=== PATIENT | male | born 1950 | race Caucasian/White ===

== ENCOUNTER 2019-03-26 00:47 | Emergency (ER) | payer MEDICARE, BC ==
[~2019-03-26] VITALS: Ht 180.3 cm; Wt 124.7 kg
--- NOTE | 2019-03-26 01:00 | NUR ---
BIBWIFE C/O DIZZINESS X1 WEEK, PROGRESSIVELY GETTING WORSE. PT ALSO C/O NAUSEA. PT AAOX4. PT APPEARS UNCOMFORTABLY. RESPRIATIONS EVEN AND UNLABORED. SKIN INTACT. NO ACUTE DISTRESS NOTED AT THIS TIME. WILL CONTINUE TO MONITOR.
[2019-03-26] MEDS ORDERED: ONDANSETRON HCL/PF 4 MG/2 ML VIAL ONE (01:21)
[2019-03-26] MEDS ORDERED: ONDANSETRON HCL/PF - ER 4 MG/2 ML VIAL IV ONE (01:30)
[2019-03-26] MEDS ORDERED: MECLIZINE HCL 25 MG TABLET PO ONE (01:30)
[2019-03-26] MEDS ORDERED: ONDANSETRON 4 MG TAB.RAPDIS SL ONE (01:30)
[2019-03-26] MEDS ORDERED: IV NS 0.9% 1,000 ML BAG IV ONE (01:30)
--- NOTE | 2019-03-26 01:35 | NUR ---
IV INITIATED RAC 18G. LABS DRAWN FROM SITE. MEDICAL MASSAGE THERAPIST AT BEDSIDE FOR COLLECTION. IV INTACT AND PATENT, PLACED ON SALINE LOCK
[2019-03-26 01:40] LABS: BASOPHILS % (AUTO) 0.4 % (0.0-2.0); EOSINOPHILS % (AUTO) 1.9 % (0.0-6.0); HEMATOCRIT 33 % (39-51); LYMPHOCYTES # (AUTO) 0.3 /CMM (0.8-4.8); LYMPHOCYTES % (AUTO) 4.7 % (20.0-44.0); MEAN CORPUSCULAR HGB CONC 33 g/dl (31.0-36.0); MEAN CORPUSCULAR VOLUME 92 fL (80-96); MONOCYTES # (AUTO) 0.7 /CMM (0.1-1.30); MONOCYTES % (AUTO) 9.4 % (2.0-12.0); NEUTROPHILS # (AUTO) 5.8 /CMM (1.8-8.9); NEUTROPHILS % (AUTO) 83.6 % (43.0-81.0); PLATELET COUNT (AUTO) 119 /CMM (150-450); RED BLOOD CELL COUNT(AUTO) 3.59 MIL/uL (4.5-6.0)
[2019-03-26 01:48] LABS: CALCIUM, SERUM 9.3 mg/dL (8.5-10.1); CREATININE 4.9 mg/dL (0.6-1.3); POTASSIUM 3.9 mmol/L (3.5-5.1)
[2019-03-26] MEDS ORDERED: MECLIZINE HCL 25 MG TABLET ONE (02:17)
--- NOTE | 2019-03-26 02:55 | NUR ---
Patient discharged to home in stable condition. Written and verbal after care instructions given. Patient verbalizes understanding of instruction.IV removed. Catheter intact and site benign. Pressure and 4x4 applied to site. No bleeding noted.Pt ambulatory with a steady gait
[2019-03-26 02:56] VITALS: BP 164/71
== END 2019-03-26 02:56 | disposition home or self-care (01) ==
LOC: ER 00:57
DX: R42 Dizziness and giddiness (principal); E86.0 Dehydration; I12.0 Hypertensive chronic kidney disease with stage 5 chronic kidney disease or end stage renal disease; N18.6 End stage renal disease; J45.909 Unspecified asthma, uncomplicated; Z99.2 Dependence on renal dialysis; Z88.7 Allergy status to serum and vaccine
CPT/HCPCS: 36415; 80048; 85025; 93005 ×2; 96361; 96374; 99284; J2405; J7030; J8597

== ENCOUNTER 2020-10-08 21:44 | Emergency (ER) | payer MEDICARE, BC ==
[~2020-10-08] VITALS: Ht 180.3 cm; Wt 111.1 kg
--- NOTE | 2020-10-08 22:05 | NUR ---
PATIENT BIBS FOR C/O LEFT LOWER BACK PAIN RADIATING TO THE LLE. HX OF SCIATICA AND LOWER BACK PAIN (STENOSIS). PATIENT IS A/O X 4, RR EVEN AND UNLABORED, NO SOB NOTED. PATIENT CONNECTED TO MONITOR.
[2020-10-08] MEDS ORDERED: MORPHINE SULFATE INJ 2 MG/ML DISP.SYRIN IM ONE (22:30)
[2020-10-08] MEDS ORDERED: ONDANSETRON 4 MG TAB.RAPDIS SL ONE (22:30)
[2020-10-08] MEDS ORDERED: DEXAMETHASONE SOD PHOSPHATE 4 MG/ML VIAL IM ONE (22:30)
[2020-10-08] MEDS ORDERED: ONDANSETRON 4 MG TAB.RAPDIS ONE (22:33)
[2020-10-08] MEDS ORDERED: MORPHINE SULFATE INJ 4 MG/ML DISP.SYRIN ONE (22:33)
[2020-10-08] MEDS ORDERED: DEXAMETHASONE SOD PHOSPHATE 10 MG/ML VIAL ONE (22:33)
[2020-10-08 23:16] VITALS: BP 138/62
--- NOTE | 2020-10-08 23:17 | NUR ---
Patient discharged to home in stable condition. Written and verbal after care instructions given. Patient verbalizes understanding of instruction.
== END 2020-10-08 23:17 | disposition home or self-care (01) ==
LOC: ER 21:46
DX: M54.42 Lumbago with sciatica, left side (principal); I10 Essential (primary) hypertension; E78.5 Hyperlipidemia, unspecified; J45.909 Unspecified asthma, uncomplicated; M10.9 Gout, unspecified; Z91.048 Other nonmedicinal substance allergy status
CPT/HCPCS: 96372 ×2; 99284; J1100; J2270; Q0162

== ENCOUNTER 2021-04-23 06:21 | Emergency (ER) | payer MEDICARE, BC ==
[~2021-04-23] VITALS: Ht 182.9 cm; Wt 117.9 kg
[2021-04-23] MEDS ORDERED: MORPHINE SULFATE INJ 2 MG/ML DISP.SYRIN IM ONE ×2 (08:00→10:30)
--- NOTE | 2021-04-23 08:00 | NUR ---
BIB FOR C/O LOWER BACK PAIN 4/ S/P GLF. PT HAD ANOTHER FALL EPISDOE W/ POSSIBLE BROKEN L HAND/ FINGERS PAIN RATES 4. THE PATIENT IS ALERT AND ORIENTED X4. RESPIRATION REGULAR AND UNLABORED. WILL CONTINUE T MONITOR THE PATIENT.
[2021-04-23] MEDS ORDERED: MORPHINE SULFATE INJ 4 MG/ML DISP.SYRIN ONE ×2 (08:31→10:31)
--- NOTE | 2021-04-23 08:36 | NUR ---
RETURNED FROM RADIOLOGY FOR IMAGING STUDIES. C/O 01/13 PAIN. MEDICATED ORDERED. SEE EMAR.
[2021-04-23] MEDS ORDERED: HYDR-4209 PO (10:25)
--- NOTE | 2021-04-23 10:40 | NUR ---
Patient discharged to home in stable condition. Written and verbal after care instructions given. Patient verbalizes understanding of instruction.
[2021-04-23 11:03] VITALS: BP 126/62
== END 2021-04-23 11:03 | disposition home or self-care (01) ==
LOC: ER 06:24
DX: M25.532 Pain in left wrist (principal); M79.642 Pain in left hand; R22.32 Localized swelling, mass and lump, left upper limb; R51.9 Headache, unspecified; E78.5 Hyperlipidemia, unspecified; I25.10 Atherosclerotic heart disease of native coronary artery without angina pectoris; J45.909 Unspecified asthma, uncomplicated; M10.9 Gout, unspecified; I13.2 Hypertensive heart and chronic kidney disease with heart failure and with stage 5 chronic kidney disease, or end stage renal disease; E11.22 Type 2 diabetes mellitus with diabetic chronic kidney disease; N18.6 End stage renal disease; I50.9 Heart failure, unspecified; Z99.2 Dependence on renal dialysis; Z88.8 Allergy status to other drugs, medicaments and biological substances; W19.XXXA Unspecified fall, initial encounter; Y93.89 Activity, other specified; Y92.89 Other specified places as the place of occurrence of the external cause; Y99.8 Other external cause status
CPT/HCPCS: 29125; 70450; 72125; 72131; 73110; 73130; 96372 ×2; 99284; J2270 ×2

== ENCOUNTER 2021-04-29 08:20 | Inpatient (IN) | payer MEDICARE, BC ==
[~2021-04-29] VITALS: Ht 182.9 cm; Wt 114.3 kg
[~2021-04-29 08:20] MED LIST: HYDR-4209 PO
--- NOTE | 2021-04-29 08:20 | NUR ---
BIB RA 77 FROM HOME,C/O BACK PAIN AFTER FALLING DOWN FROM HIS BED. PT STATED BACK PAIN 01/13. MD AT BEDSIDE.
--- NOTE | 2021-04-29 08:31 | NUR ---
IV ETSBALISHED R AC 20G, LABS WERE DRAWN AND COLLECTED.
[2021-04-29] MEDS ORDERED: KETOROLAC TROMETHAMINE INJ 30 MG/ML VIAL ONE (08:40)
[2021-04-29] MEDS ORDERED: CARB1TAB21 PO (08:44)
[2021-04-29] MEDS ORDERED: MULT-447 PO (08:44)
[2021-04-29] MEDS ORDERED: CLON1PAT TD (08:44)
[2021-04-29] MEDS ORDERED: ATOR40TA PO (08:44)
[2021-04-29] MEDS ORDERED: ASPI-1420 PO (08:44)
[2021-04-29] MEDS ORDERED: SENN-261 PO (08:44)
[2021-04-29] MEDS ORDERED: NIFE90TA61 PO (08:44)
[2021-04-29] MEDS ORDERED: FERR210T PO (08:44)
[2021-04-29] MEDS ORDERED: MONT10TA22 PO (08:44)
[2021-04-29] MEDS ORDERED: ASCO-352 PO (08:44)
[2021-04-29] MEDS ORDERED: PANT40TA2 PO (08:44)
[2021-04-29] MEDS ORDERED: MUPI22OI7 TD (08:44)
[2021-04-29] MEDS ORDERED: FURO-144 PO (08:44)
[2021-04-29] MEDS ORDERED: METO2.5T2 PO (08:44)
[2021-04-29] MEDS ORDERED: HYDR-500 PO (08:44)
[2021-04-29] MEDS ORDERED: ALLO100T PO (08:44)
[2021-04-29] MEDS ORDERED: KETO125S TP (08:44)
[2021-04-29] MEDS ORDERED: QUET25TA PO (08:44)
[2021-04-29] MEDS ORDERED: OXYC1TAB12 PO (08:44)
[2021-04-29] MEDS ORDERED: CARV25TA2 PO (08:44)
[2021-04-29] MEDS ORDERED: CLOP75TA15 PO (08:44)
[2021-04-29] MEDS ORDERED: HYDR100T27 PO (08:44)
[2021-04-29] MEDS ORDERED: AMMO226L TP (08:44)
[2021-04-29] MEDS ORDERED: FAMO20TA8 PO (08:44)
[2021-04-29] MEDS ORDERED: TERA10CA4 PO (08:44)
[2021-04-29] MEDS ORDERED: FINA5TAB11 PO (08:44)
[2021-04-29 08:47] LABS: BASOPHILS % (AUTO) 0.5 % (0.0-2.0); EOSINOPHILS % (AUTO) 5.7 % (0.0-6.0); HEMATOCRIT 33 % (39-51); HEMOGLOBIN 10.7 g/dL (13.5-17.5); LYMPHOCYTES # (AUTO) 0.4 K/uL (0.8-4.8); MEAN CORPUSCULAR HGB CONC 33 g/dl (31.0-36.0); MEAN CORPUSCULAR VOLUME 94 fL (80-96); MONOCYTES # (AUTO) 1.1 K/uL (0.1-1.30); MONOCYTES % (AUTO) 12.3 % (2.0-12.0); NEUTROPHILS # (AUTO) 7.1 K/uL (1.8-8.9); NEUTROPHILS % (AUTO) 77.5 % (43.0-81.0); PLATELET COUNT (AUTO) 196 K/uL (150-450); RED BLOOD CELL COUNT(AUTO) 3.48 MIL/uL (4.5-6.0); WHITE BLOOD COUNT (AUTO) 9.1 K/uL (4.3-11.0)
[2021-04-29] MEDS ORDERED: KETOROLAC TROMETHAMINE INJ 30 MG/ML VIAL IV ONE (09:00)
[2021-04-29 09:20] LABS: CARBON DIOXIDE 23 mmol/L (21-32); CHLORIDE 101 mmol/L (98-107); GLUCOSE 104 mg/dL (74-106); SODIUM SERUM 138 mmol/L (136-145)
[2021-04-29 09:23] LABS: CREATININE 10.9 mg/dL (0.6-1.3); UREA NITROGEN, BLOOD 135 mg/dL (7-18)
[2021-04-29 09:25] LABS: ALANINE AMINOTRANSFERASE < 6 U/L (12-78); ALBUMIN 2.1 g/dL (3.4-5.0); ALKALINE PHOSPHATASE 454 U/L (46-116); ASPARTATE AMINOTRANSFERASE 14 U/L (15-37); BILIRUBIN,DIRECT 0.2 mg/dL (0.0-0.2); BILIRUBIN,TOTAL 0.4 mg/dL (0.2-1.0); TOTAL PROTEIN, SERUM 6.1 g/dL (6.4-8.2)
[2021-04-29] MEDS ORDERED: CARBIDOPA/LEVODOPA 25/100 MG 1 UDTAB PO PRN (11:30)
[2021-04-29] MEDS ORDERED: SENNOSIDES 8.6 MG TABLET PO PRN (11:30)
[2021-04-29] MEDS ORDERED: Z GUARD REMEDY 4 OZ OINT TP PRN (11:30)
[2021-04-29] MEDS ORDERED: ACETAMINOPHEN 325 MG TABLET PO PRN (11:30)
[2021-04-29] MEDS ORDERED: MAGNESIUM HYDROXIDE 30 ML UDC PO PRN (11:30)
[2021-04-29] MEDS ORDERED: ONDANSETRON HCL/PF 4 MG/2 ML VIAL IVP PRN (11:30)
[2021-04-29] MEDS ORDERED: MAG HYDROX/AL HYDROX/SIMETH 30 ML UDC PO PRN (11:30)
[2021-04-29] MEDS: MUPIROCIN OINT 2% 22 GM TUBE TP SCH ×2 (13:00→17:16)
[2021-04-29] MEDS ORDERED: MUPIROCIN OINT 2% 22 GM TUBE ONE (13:37)
[2021-04-29] MEDS: hydrALAZINE HCL 50 MG TABLET PO SCH ×2 (13:58→17:14)
--- NOTE | 2021-04-29 14:58 | NUR ---
PT RESTING COMFROTABLY, VITAL SIGNS ARE STABLE, EASY TO AROUSE
[2021-04-29] MEDS ORDERED: CARVEDILOL 12.5 MG TABLET ONE (17:02)
[2021-04-29] MEDS ORDERED: FAMOTIDINE (20 MG) 20 MG TABLET ONE (17:02)
[2021-04-29] MEDS ORDERED: PANTOPRAZOLE 40 MG TABLET.DR PO ONE (17:03)
[2021-04-29] MEDS: FAMOTIDINE (20 MG) 20 MG TABLET PO SCH (17:14)
[2021-04-29] MEDS: PANTOPRAZOLE 40 MG TABLET.DR PO SCH (17:14)
[2021-04-29] MEDS: CARVEDILOL 12.5 MG TABLET PO SCH (17:14)
[2021-04-29] MEDS ORDERED: ATORVASTATIN 40 MG TABLET ONE (18:05)
[2021-04-29] MEDS: ATORVASTATIN 40 MG TABLET PO SCH (18:32)
[2021-04-29] MEDS: FINASTERIDE (5 MG) 5 MG TABLET PO SCH (18:32)
--- NOTE | 2021-04-29 18:43 | NUR ---
GOT BED 324-2 AFTER CHANGE OF SHIFT.
--- NOTE | 2021-04-29 20:13 | NUR ---
REPORT GIVEN TO [place]
--- NOTE | 2021-04-29 20:15 | NUR ---
TRANSFERRING PT VIA ACLS TO ROOM 324
[2021-04-29 20:20] VITALS: BP 126/71
--- NOTE | 2021-04-29 20:20 | NUR ---
BRICK WHEELER NOTES PATIENT BROUGHT UP AT THIS TIME VIA GURNEY. A/OX4 AND ABLE TO MADES NEEDS KNOWN. NO S/S OF APPARENT DISTRESS ON MILEY AIR. C/O 4/10 PAIN AT THIS TIME WITH INACTIVITY. PATIENT BELONGINGS CHECKED. NEW WRIST BAND ON PATIENT. TELE MONITOR READING SINUS WITH 1ST DEGREE AV BLOCK. WISHES TO BE FULL CODE AT THIS TIME. VACCINATED FOR COVID AND UP TO DATE WITH HIS FLU AND PNEUMONIA VACCINATIONS BUT UNABLE TO RECALL WHEN. PATIENT NOTED TO HAVE PERITONEAL CATH ON R. QUADRANT ABDOMEN AND PERMA CATH ON R. CW. 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 PATIENT NOTED TO HAVE BIG BRUISES ON LOWER BACK AND ALSO ON R. ARM. PATIENT NOTED TO BE WEARING L. ARM BRACE. PER PATIENT HE FELL 3 DAYS AGO BECAUSE HE WAS OUT OF BALANCE. DENIED DIZZINESS NOR SYNCOPE WHEN THE FALL HAPPENED. WILL FOLLOW THROUGH DOCTOR'S ORDERS AND MONITOR PATIENT FOR NOW.
[2021-04-29 22:29] VITALS: BP 126/71
--- NOTE | 2021-04-29 22:30 | NUR ---
COORDINATOR MINING PRODUCTS NOTE PATIENT C/O 07/14 PAIN. GIVEN TYLENOL FOR NOW. ALSO GIVEN AMBIEN PER PATIENT REQUEST. PER PATIENT HE HAS PROBLEM WITH HIS SLEEP AND TAKES SLEEPING PILL AT HOME DAILY BUT UNABLE YO REMEMBER THE PILL HE TAKES AT HOME.
[2021-04-29] MEDS: MONTELUKAST SODIUM (10MG) 10 MG TABLET PO SCH (22:38)
[2021-04-29] MEDS: ZOLPIDEM TARTRATE 5 MG TABLET PO PRN (22:38)
--- NOTE | 2021-04-29 23:44 | NUR ---
STAINED GLASS WINDOW DESIGNER NOTE PATIENT SIGNED CONSENT FOR HEMODIALYSIS AT THIS TIME. HD NURSE STILL ON THE FLOOD FINISHING UP WITH OTHER PATIENT'S FOR NOW BUT I MADE THEM AWARE ABOUT THE DOCTOR'S ORDER FOR HD TONIGHT FOR THE PATIENT.
--- NOTE | 2021-04-29 23:46 | NUR ---
SET UP MECHANIC STAMPING MACHINES NOTE PATIENT C/O OF 8-9/10 PAIN ON HIS MID BACK T LOWER BACK AND LT. ARM. MESSAGED DOCTOR TYESHA FOR A STRONGER PAIN MEDICATION. DOCTOR ORDERED NORCO 5 Q8H PRN. WILL CARRY OUT ORDER.
[2021-04-30] VITALS: BP 146/43
--- NOTE | 2021-04-30 00:35 | NUR ---
LIEN SEARCHER NOTE HD NURSE AT BEDSIDE. HD STARTED AT THIS TIME.
--- NOTE | 2021-04-30 03:35 | NUR ---
CORPORATE EVENTS DIRECTOR NOTE DIALYSIS ENDED AT THIS TIME. 2L OUT PER HD NURSE.
--- NOTE | 2021-04-30 03:59 | NUR ---
MEXICAN FOOD MAKER NOTE POST HD V/S FOLLOWS: BP-128/62, HR-65, RR- 18, T- 97.8.
[2021-04-30 04:00] VITALS: BP 140/76
[2021-04-30] MEDS ORDERED: HYDROCODONE/APAP 5/325MG TABLET ONE (05:31)
[2021-04-30] MEDS: HYDROCODONE/APAP 5/325MG TABLET PO PRN ×2 (05:33→17:20)
[2021-04-30 07:02] LABS: BASOPHILS # (AUTO) 0.1 K/uL (0.0-0.2); BASOPHILS % (AUTO) 0.9 % (0.0-2.0); EOSINOPHILS % (AUTO) 6.7 % (0.0-6.0); HEMATOCRIT 31 % (39-51); HEMOGLOBIN 10.2 g/dL (13.5-17.5); LYMPHOCYTES # (AUTO) 0.6 K/uL (0.8-4.8); LYMPHOCYTES % (AUTO) 7.1 % (20.0-44.0); MEAN CORPUSCULAR HGB CONC 33 g/dl (31.0-36.0); MEAN CORPUSCULAR VOLUME 93 fL (80-96); MONOCYTES # (AUTO) 1.1 K/uL (0.1-1.30); MONOCYTES % (AUTO) 13.3 % (2.0-12.0); NEUTROPHILS # (AUTO) 5.9 K/uL (1.8-8.9); PLATELET COUNT (AUTO) 179 K/uL (150-450); RED BLOOD CELL COUNT(AUTO) 3.28 MIL/uL (4.5-6.0); WHITE BLOOD COUNT (AUTO) 8.2 K/uL (4.3-11.0)
[2021-04-30 07:08] LABS: CALCIUM, SERUM 8.2 mg/dL (8.5-10.1); CARBON DIOXIDE 26 mmol/L (21-32); CHLORIDE 98 mmol/L (98-107); GLUCOSE 82 mg/dL (74-106); MAGNESIUM 2.2 mg/dL (1.8-2.4); POTASSIUM 4.6 mmol/L (3.5-5.1); SODIUM SERUM 137 mmol/L (136-145)
[2021-04-30 07:14] LABS: CREATININE 8.3 mg/dL (0.6-1.3); UREA NITROGEN, BLOOD 95 mg/dL (7-18)
[2021-04-30 07:18] LABS: PHOSPHORUS 8.7 mg/dL (2.5-4.9)
--- NOTE | 2021-04-30 07:24 | NUR ---
MOTOR BIKE MECHANIC CLOSING NOTE PATIENT IN BED WITH EYES CLOSED. DID NOT SLEEP AT ALL LAST NIGHT. EASY TO AROUSE. NO S/S OF APPARENT DISTRESS ON ROOM AIR-- PRN 2LPM OF O2 VIA NC PER PATIENT REQUEST. PAIN RELIEVED WITH MEDICATION. ALL NEEDS ATTENDED. ALL SCHEDULED MEDICATIONS ADMINISTERED. TELE MONITOR READING SR WITH PAC AND 1ST DEGREE AV BLOCK. SAFETY KEPT IN PLACE THE WHOLE SHIFT. ENDORSED TO PABLITO FOR CONTINUITY OF CARE.
--- NOTE | 2021-04-30 07:35 | NUR ---
tele drafter civil (cad): notes tele removed per dr. melvin's order. pt awake, a/ox4. no c/o pain or discomfort. no apparent distress noted. will continue to monitor.
[2021-04-30 08:00] VITALS: BP 144/66
[2021-04-30 08:33] LABS: CHOLESTEROL 81 mg/dL (<200); HDL CHOLESTEROL 40 mg/dL (40-60); LDL 28 mg/dL (0-99); TRIGLYCERIDES 86 mg/dL (30-150)
[2021-04-30] MEDS: hydrALAZINE HCL 50 MG TABLET PO SCH ×3 (09:00→16:53)
[2021-04-30] MEDS: CARVEDILOL 12.5 MG TABLET PO SCH ×2 (09:00→16:53)
[2021-04-30] MEDS: NIFEdipine XL (30MG) 30 MG TAB PO SCH (09:00)
[2021-04-30] MEDS: PANTOPRAZOLE 40 MG TABLET.DR PO SCH ×2 (09:54→16:53)
[2021-04-30] MEDS: MULTIVIT W/MINERALS 1 TAB TABLET PO SCH (09:54)
[2021-04-30] MEDS: ALLOPURINOL 100 MG TABLET PO SCH (09:54)
[2021-04-30] MEDS: METOLAZONE 2.5 MG TABLET PO SCH (09:54)
[2021-04-30] MEDS: ASCORBIC ACID 500 MG TABLET PO SCH (09:54)
[2021-04-30] MEDS: FAMOTIDINE (20 MG) 20 MG TABLET PO SCH ×2 (09:55→16:53)
[2021-04-30] MEDS: FERROUS SULFATE (325 MG) 325 MG/TAB TABLET PO SCH (09:55)
[2021-04-30] MEDS: ASPIRIN EC 81 MG TABLET.DR PO SCH (09:55)
[2021-04-30] MEDS: CLOPIDOGREL BISULFATE 75 MG TABLET PO SCH (09:55)
[2021-04-30] MEDS: TERAZOSIN HCL 5 MG CAPSULE PO SCH (09:55)
[2021-04-30] MEDS: MUPIROCIN OINT 2% 22 GM TUBE TP SCH ×3 (10:41→16:56)
--- NOTE | 2021-04-30 11:27 | NUR ---
m/s clinical data specialist: md visit seen and examined by dr. faith at this time. md updated pt plan of care. pt verbalized understanding.
--- NOTE | 2021-04-30 12:04 | NUR ---
m/s local company refrigerated truck driver: notes held hydralazine, pt for possible hd tx today per progress notes. awaiting order. pt agreeable and aware. will continue to monitor.
--- NOTE | 2021-04-30 15:05 | NUR ---
m/s manager intel: nephro f/u seen and examined by dr. thompson with no new order. per , pt is not scheduled for hd tx today. pt aware.
[2021-04-30 16:00] VITALS: BP 140/64
[2021-04-30] MEDS: ATORVASTATIN 40 MG TABLET PO SCH (17:03)
[2021-04-30] MEDS: FINASTERIDE (5 MG) 5 MG TABLET PO SCH (17:03)
--- NOTE | 2021-04-30 19:00 | NUR ---
m/s flour distributor: notes bedside report given to michael (rn) for continuity of care
--- NOTE | 2021-04-30 19:20 | NUR ---
MS RN OPENING NOTES: RECEIVED PATIENT SITTING AT THE EDGE OF THE BED, AWAKE, A/O X4, NO S/S OF DISTRESS NOTED. NO COMPLAIN OF PAIN, CALL LIGHT WITHIN REACH. BED IN LOWEST AND LOCKED POSITION. URINAL AT THE BEDSIDE. WALKER AT THE BEDSIDE NEEDED, INSTRUCTED THE PT TO CALL WHEN OOB TO THE BATHROOM, PATIENT VERBALIZED UNDERSTANDING. WITH LEFT HAND IMMOBILIZER ON, PATIENT STATED THAT HE FELL 4 DAYS AGO AT HOME HAD FRACTURE OF THE 5TH FINGER ON THE LEFT HAND.WITH ABDOMINAL PERITONEAL DIALYSIS TUBE INTACT ON THE RLQ, DRESSING IS CLEAN, DRY AND INTACT. WITH LEFT ARM AV SHUNT NOT FUNCTIONING.
[2021-04-30 20:00] VITALS: BP 138/68
[2021-04-30] MEDS: MONTELUKAST SODIUM (10MG) 10 MG TABLET PO SCH (21:48)
[2021-05-01] MEDS: ZOLPIDEM TARTRATE 5 MG TABLET PO PRN ×2 (00:13→22:04)
--- NOTE | 2021-05-01 07:16 | NUR ---
MS RN OPENING NOTES: RECEIVED PATIENT ON BED, AWAKE, A/O X4, NO S/S OF DISTRESS NOTED. NO COMPLAIN OF PAIN. WITH LEFT HAND IMMOBILIZER WITH ABDOMINAL PERITONEAL DIALYSIS TUBE INTACT ON THE RLQ, DRESSING IS CLEAN, DRY AND INTACT. WITH LEFT ARM AV SHUNT NOT FUNCTIONING. BED IN LOWEST AND LOCKED POSITION. CALL LIGHT WITHIN REACH. WILL CONTINUE TO MONITOR PATIENT.
[2021-05-01 07:21] LABS: BASOPHILS % (AUTO) 0.6 % (0.0-2.0); EOSINOPHILS % (AUTO) 5.6 % (0.0-6.0); HEMATOCRIT 31 % (39-51); HEMOGLOBIN 10.3 g/dL (13.5-17.5); LYMPHOCYTES # (AUTO) 0.6 K/uL (0.8-4.8); LYMPHOCYTES % (AUTO) 7.7 % (20.0-44.0); MEAN CORPUSCULAR HGB CONC 33 g/dl (31.0-36.0); MEAN CORPUSCULAR VOLUME 94 fL (80-96); MONOCYTES # (AUTO) 1.1 K/uL (0.1-1.30); NEUTROPHILS # (AUTO) 5.5 K/uL (1.8-8.9); NEUTROPHILS % (AUTO) 72.1 % (43.0-81.0); PLATELET COUNT (AUTO) 175 K/uL (150-450); RED BLOOD CELL COUNT(AUTO) 3.34 MIL/uL (4.5-6.0); WHITE BLOOD COUNT (AUTO) 7.7 K/uL (4.3-11.0)
[2021-05-01 08:00] VITALS: BP 174/86
[2021-05-01 08:28] LABS: CALCIUM, SERUM 9.8 mg/dL (8.5-10.1); CARBON DIOXIDE 17 mmol/L (21-32); CHLORIDE 100 mmol/L (98-107); GLUCOSE 86 mg/dL (74-106); MAGNESIUM 2.7 mg/dL (1.8-2.4); POTASSIUM 5.5 mmol/L (3.5-5.1); SODIUM SERUM 135 mmol/L (136-145)
[2021-05-01] MEDS: HYDROCODONE/APAP 5/325MG TABLET PO PRN ×2 (08:40→16:59)
[2021-05-01] MEDS: MULTIVIT W/MINERALS 1 TAB TABLET PO SCH (08:41)
[2021-05-01] MEDS: hydrALAZINE HCL 50 MG TABLET PO SCH ×3 (08:41→16:57)
[2021-05-01] MEDS: TERAZOSIN HCL 5 MG CAPSULE PO SCH (08:42)
[2021-05-01] MEDS: ASCORBIC ACID 500 MG TABLET PO SCH (08:42)
[2021-05-01] MEDS: NIFEdipine XL (30MG) 30 MG TAB PO SCH (08:42)
[2021-05-01] MEDS: ASPIRIN EC 81 MG TABLET.DR PO SCH (08:42)
[2021-05-01] MEDS: ALLOPURINOL 100 MG TABLET PO SCH (08:43)
[2021-05-01] MEDS: CLOPIDOGREL BISULFATE 75 MG TABLET PO SCH (08:43)
[2021-05-01] MEDS: FAMOTIDINE (20 MG) 20 MG TABLET PO SCH ×2 (08:43→16:57)
[2021-05-01] MEDS: CARVEDILOL 12.5 MG TABLET PO SCH ×2 (08:43→16:57)
[2021-05-01] MEDS: METOLAZONE 2.5 MG TABLET PO SCH (08:43)
[2021-05-01] MEDS: PANTOPRAZOLE 40 MG TABLET.DR PO SCH ×2 (08:43→16:57)
[2021-05-01] MEDS: FERROUS SULFATE (325 MG) 325 MG/TAB TABLET PO SCH (08:43)
[2021-05-01] MEDS: MUPIROCIN OINT 2% 22 GM TUBE TP SCH ×3 (08:47→17:00)
[2021-05-01] MEDS ORDERED: CLONIDINE HCL 0.1MG/24H PTWK 1 EA PATCH TD SCH (09:00)
[2021-05-01 09:12] LABS: UREA NITROGEN, BLOOD 115 mg/dL (7-18)
[2021-05-01 09:13] LABS: CREATININE 9.7 mg/dL (0.6-1.3); PHOSPHORUS 10.9 mg/dL (2.5-4.9)
[2021-05-01 16:00] VITALS: BP 152/75
[2021-05-01] MEDS: ATORVASTATIN 40 MG TABLET PO SCH (18:34)
[2021-05-01] MEDS: FINASTERIDE (5 MG) 5 MG TABLET PO SCH (18:34)
--- NOTE | 2021-05-01 19:00 | NUR ---
MS RN CLOSING NOTES: PATIENT ON BED, AWAKE, A/O X4, NO S/S OF DISTRESS NOTED. NO COMPLAIN OF PAIN. WITH LEFT HAND IMMOBILIZER WITH ABDOMINAL PERITONEAL DIALYSIS TUBE INTACT ON THE RLQ, DRESSING IS CLEAN, DRY AND INTACT. WITH LEFT ARM AV SHUNT NOT FUNCTIONING. PATIENT SPOKE WITH DR. MARTIN. WITH STAT ORDER FOR HD. HD NURSE NUZHAT AWARE. PATIENT STARTED ON HD ORDERED. TOLERATED WELL. BED IN LOWEST AND LOCKED POSITION. CALL LIGHT WITHIN REACH. WILL ENDORSE FOR CONTINUITY OF CARE.
[2021-05-01] MEDS ORDERED: ZOLP5TAB2 PO ×2 (19:59→20:13)
[2021-05-01] MEDS ORDERED: HYDR-3972 PO ×2 (19:59→20:13)
[2021-05-01 20:00] VITALS: BP 133/69
[2021-05-01] MEDS: MONTELUKAST SODIUM (10MG) 10 MG TABLET PO SCH (22:03)
--- NOTE | 2021-05-01 22:06 | NUR ---
MS RN NOTES PRN VICENTE GIVEN PER PT REQUEST TOLERATED WELL.
--- NOTE | 2021-05-01 22:50 | NUR ---
MS RN NOTES PT S/P DIALYSIS 2 L OUT PT TOLERATED WELL. WILL CONTINUE TO MONITOR.
[2021-05-02] MEDS: HYDROCODONE/APAP 5/325MG TABLET PO PRN (00:31)
--- NOTE | 2021-05-02 00:33 | NUR ---
MS RN NOTES NORCO 5- 325 MG PRN GIVEN TOLERATED WELL.
--- NOTE | 2021-05-02 06:53 | NUR ---
MS RN CLOSING NOTES: PATIENT ON BED, AWAKE, A/O X4, NO S/S OF DISTRESS NOTED. NO COMPLAIN OF PAIN. WITH LEFT HAND IMMOBILIZER WITH ABDOMINAL PERITONEAL DIALYSIS TUBE INTACT ON THE RLQ, DRESSING IS CLEAN, DRY AND INTACT. WITH LEFT ARM AV SHUNT NOT FUNCTIONING. PT STATUS POST DIALYSIS 2 L OUTPUT.TOLERATED WELL. BED IN LOWEST AND LOCKED POSITION. CALL LIGHT WITHIN REACH. WILL ENDORSE FOR CONTINUITY OF CARE.
[2021-05-02 07:40] LABS: BASOPHILS % (AUTO) 0.6 % (0.0-2.0); HEMATOCRIT 29 % (39-51); HEMOGLOBIN 9.8 g/dL (13.5-17.5); LYMPHOCYTES # (AUTO) 0.4 K/uL (0.8-4.8); MEAN CORPUSCULAR HGB CONC 33 g/dl (31.0-36.0); MEAN CORPUSCULAR VOLUME 94 fL (80-96); MONOCYTES % (AUTO) 13.6 % (2.0-12.0); NEUTROPHILS # (AUTO) 5.2 K/uL (1.8-8.9); NEUTROPHILS % (AUTO) 72.8 % (43.0-81.0); PLATELET COUNT (AUTO) 168 K/uL (150-450); RED BLOOD CELL COUNT(AUTO) 3.13 MIL/uL (4.5-6.0); WHITE BLOOD COUNT (AUTO) 7.2 K/uL (4.3-11.0)
--- NOTE | 2021-05-02 07:53 | NUR ---
MS RN OPENING NOTES: RECEIVED Pt IN BED, AWAKE, A/O X4, NO S/S OF DISTRESS NOTED. NO COMPLAINTS OF PAIN. Pt WITH LEFT HAND IMMOBILIZER WITH ABDOMINAL PERITONEAL DIALYSIS TUBE INTACT ON THE RLQ, DRESSING IS CLEAN, DRY AND INTACT. WITH LEFT ARM AV SHUNT NOT FUNCTIONING. SAFETY MEASURES ARE IN PLACE: BED IS LOCKED AND IN LOWEST POSITION. SIDE RAILS UPx2. BED SIDE TABLE AND CALL LIGHT ARE WITHIN REACH. WILL CONTINUE TO MONITOR THROUGHOUT THE SHIFT.
[2021-05-02 08:11] LABS: CALCIUM, SERUM 8.2 mg/dL (8.5-10.1); CARBON DIOXIDE 26 mmol/L (21-32); CHLORIDE 99 mmol/L (98-107); CREATININE 7.4 mg/dL (0.6-1.3); GLUCOSE 85 mg/dL (74-106); MAGNESIUM 2.1 mg/dL (1.8-2.4); POTASSIUM 4.3 mmol/L (3.5-5.1); UREA NITROGEN, BLOOD 79 mg/dL (7-18)
[2021-05-02 08:16] LABS: PHOSPHORUS 8.1 mg/dL (2.5-4.9)
[2021-05-02 08:17] LABS: SODIUM SERUM 137 mmol/L (136-145)
[2021-05-02] MEDS ORDERED: ZOLP5TAB2 PO (09:59)
[2021-05-02] MEDS ORDERED: HYDR-3972 PO (09:59)
--- NOTE | 2021-05-02 10:09 | NUR ---
RN NOTES: DISCHARGE Pt HAS BEEN DISCHARGED. HE IS MEDICALLY STABLE. A/Ox4 AND ON ROOM AIR TOLERATING. Pt LEFT VIA PRIVATE CAR WITH FAMILY MEMBER. NO COMPLAINTS OF PAIN AND NO SIGNS OF DISTRESS AT THE MOMENT OF DISCHARGE. IV ACCESS WAS REMOVED. ALL DISCHARGE INSTRUCTIONS EXPLAINED TO Pt.
== END 2021-05-02 10:00 | disposition home or self-care (01) | DRG 280 ==
LOC: ER 08:28 → TRANSITION 10:58 → MED 19:17 → TELE 20:30 → MED 04-30 07:38
PROVIDERS: ADMIT Nurse Practitioner Acute Care; ATTEND Nurse Practitioner Acute Care
PROC: 5A1D70Z Performance of Urinary Filtration, Intermittent, Less than 6 Hours Per Day (ICD-10-PCS; principal; 2021-04-29)
DX: I13.2 Hypertensive heart and chronic kidney disease with heart failure and with stage 5 chronic kidney disease, or end stage renal disease (principal); G92.8 Other toxic encephalopathy; I21.A1 Myocardial infarction type 2; N18.6 End stage renal disease; E44.0 Moderate protein-calorie malnutrition; E87.2 Acidosis; J90 Pleural effusion, not elsewhere classified; I25.10 Atherosclerotic heart disease of native coronary artery without angina pectoris; M51.36 Other intervertebral disc degeneration, lumbar region; S92.912A Unspecified fracture of left toe(s), initial encounter for closed fracture; W06.XXXA Fall from bed, initial encounter; Y92.042 Bedroom in boarding-house as the place of occurrence of the external cause; I50.9 Heart failure, unspecified; M54.30 Sciatica, unspecified side; G25.81 Restless legs syndrome; E78.5 Hyperlipidemia, unspecified; D63.1 Anemia in chronic kidney disease; Z95.820 Peripheral vascular angioplasty status with implants and grafts; Z20.822 Contact with and (suspected) exposure to COVID-19; E88.09 Other disorders of plasma-protein metabolism, not elsewhere classified; M10.9 Gout, unspecified; Z91.048 Other nonmedicinal substance allergy status; Z79.02 Long term (current) use of antithrombotics/antiplatelets; Z79.899 Other long term (current) drug therapy; Z79.82 Long term (current) use of aspirin; G89.4 Chronic pain syndrome; I70.0 Atherosclerosis of aorta; J45.909 Unspecified asthma, uncomplicated; Z95.5 Presence of coronary angioplasty implant and graft; Z99.2 Dependence on renal dialysis; E87.5 Hyperkalemia; I67.2 Cerebral atherosclerosis; D63.8 Anemia in other chronic diseases classified elsewhere; N25.0 Renal osteodystrophy; I44.30 Unspecified atrioventricular block; I73.9 Peripheral vascular disease, unspecified; M18.10 Unilateral primary osteoarthritis of first carpometacarpal joint, unspecified hand; M47.816 Spondylosis without myelopathy or radiculopathy, lumbar region; M48.061 Spinal stenosis, lumbar region without neurogenic claudication; R29.6 Repeated falls; W19.XXXA Unspecified fall, initial encounter; Z91.81 History of falling; Y92.9 Unspecified place or not applicable; N27.0 Small kidney, unilateral; Z95.1 Presence of aortocoronary bypass graft
CPT/HCPCS: 36415; 70450-TC; 71045-TC; 72131-TC; 80048-TC; 80061-TC; 80076-TC; 83735-TC; 84100-TC; 84484-TC; 85025-TC; 85730-TC; 86706; 87081-TC; 87340; 90935-TC; 93307-TC; 97110-TC; 97116-TC; 97530-TC; G0378; J1885; J7030